=== PATIENT | male | born 1955 | race Asian ===

== ENCOUNTER 2019-03-18 07:14 | Emergency (ER) | payer BC ==
[~2019-03-18] VITALS: Ht 160 cm; Wt 58.5 kg
--- NOTE | 2019-03-18 07:29 | NUR ---
Patient to ER bed 5 to gown for evaluation. Side rails up.
--- NOTE | 2019-03-18 07:30 | NUR ---
pt arrives from home w/ c/o sore throat. pt is currently afebrile. No c/o cough. Lung sounds are clear upon auscultation.
[2019-03-18 07:31] VITALS: BP_SYST 139
--- NOTE | 2019-03-18 07:34 | NUR ---
PATIENT PRESENTS TO THE ER WITH HX OF SORE THROAT AND FRONTAL HEADACHE FOR THREE DAYS; NO TRAUMA, NO OTHER REMARKABLE S/S; PATIENT TO ER #5 AT 0730
--- NOTE | 2019-03-18 07:39 | NUR ---
ER at bedside examining patient.
--- NOTE | 2019-03-18 08:11 | NUR ---
Patient given written and verbal discharge instructions and verbalizes understanding. ER MD discussed with patient the results and treatment provided. Patient in stable condition. ID arm band removed. Rx of PCN, Prednisone, and Ibuprofen given. Patient educated on pain management and to follow up with PMD. Pain Scale 3/10. Opportunity for questions provided and answered. Medication side effect fact sheet provided.
[2019-03-18 08:12] VITALS: BP_SYST 139
== END 2019-03-18 08:12 | disposition home or self-care (01) ==
LOC: SED 07:14
DX: J02.9 Acute pharyngitis, unspecified (principal)
CPT/HCPCS: 99283